=== PATIENT | male | born 1950 | race Caucasian/White ===

== ENCOUNTER 2018-02-16 15:07 | Inpatient (IN) ==
[2018-02-16] MEDS ORDERED: *HR* Dextrose 50 % in Water (Syg) 50 ML SYRINGE IVP PRN (17:29)
[2018-02-16] MEDS ORDERED: D5% in Water 1,000 ML IVC PRN (17:29)
[2018-02-16] MEDS ORDERED: Dextrose Gel 15 GM/37.5 ML TUBE PO PRN ×2 (17:29)
[2018-02-16] MEDS ORDERED: *HR* OxyCODONE Immed Rel 5 MG TABLET PO PRN ×2 (17:37)
[2018-02-16] MEDS: Famotidine 20 MG TABLET PO SCH (18:10)
--- NOTE | 2018-02-16 19:02 | Internal Med History&Physical ---
Date of Encounter: 02/16/18 Time of Encounter: 21:36 Assessment and Plan (1) Physical deconditioning Current visit: Yes Status: Acute he had a prolonged post op course and is here for rehab. PT/OT/RT and PMR consults (2) S/P CABG x 2 Current visit: Yes Status: Acute sternal precautions. here for rehab. he is on metoprolol, plavix, lasix, amiodarone. call in for record about why he is on the amiodarone for sure. ct surg wants f/u cxr 02/17 order entered (3) CAD (coronary artery disease) Current visit: Yes Status: Acute he is s/p stemi and cabg Qualifiers: Coronary Disease-Associated Artery/Lesion type: [place] artery [place] vs. transplanted heart: [place] heart Associated angina: without angina Qualified Code(s): I25.10 - Atherosclerotic heart disease of [place] coronary artery without angina pectoris (4) HTN (hypertension) Current visit: Yes Status: Acute he did have some trouble maintaining his pressure prior to yesterday. will continue with the current medication and watch his blood pressures Qualifiers: Hypertension type: essential hypertension Qualified Code(s): I10 - Essential (primary) hypertension (5) Mixed hyperlipidemia Current visit: Yes Status: Acute atorvastain (6) Hyperglycemia Current visit: Yes Status: Acute he was on ssi and accuchecks at the prior hospital, will continue this with med ssi (7) Thrombocytopenia Current visit: Yes Status: Acute his antibodies were negative per hematology consult felt not to be hit so ok for anticoag per heme after stable from gi bleed (8) GI bleed Current visit: Yes Status: Acute from duodenal ulcers will add prevacid to avoid plavix interaction Qualifiers: GI bleed type/associated pathology: duodenal ulcer Qualified Code(s): K26.4 - Chronic or unspecified duodenal ulcer with hemorrhage (9) Duodenal ulcer Current visit: Yes Status: Acute will add ppi. watch hemoglobin he had egd (10) Left carotid bruit Current visit: Yes Status: Acute will check dopplers (11) Jaundice Current visit: Yes Status: Acute get hepatic panel with am labs (12) DVT prophylaxis Current visit: Yes Status: Acute he has on marion hose and is on plavix. he had a gi bleed due to duodenal ulcer and thrombocytopenia so will hold off on other meds. (13) Afib Current visit: Yes Status: Acute he is on metoprolol and amiodarone. he gts plavix and asa but had a gi bleed and thrombocytopenia so is not a candidate for further anticoagulation Qualifiers: Atrial fibrillation type: paroxysmal Qualified Code(s): I48.0 - Paroxysmal atrial fibrillation Internal Medicine - H&P: HPI Chief complaint: here for rehab Admitted From: Direct Admit Plans for Post Hospital Care: Home History of present illness: Mr. Shine is a 67 year old male who has had a prolonged hospital course. he intially presented to [facility] with a STEMI. he was transfered and elvaluated. he was on anticoagulation and developed a GI bleed. He had an EGD and colonoscopy that showed duodenal ulcers and a colon polyp. After he was cleared from GI he had CABG x2 and a left atrial appendage clipping. He did develop post op thrombocytopenia and difficulty weaning off the vent. He had a hematology consult and they intially stopped anticoagulation but did not feel it was hit after the antbiodies were negative. he was cleared to resume from a heme standpoint if cleared from his gi bleed due to the ulcers. He had difficulty weaning off the vent and ended up on a medrol dose pack taper. he also had problems with hypotension postop. on 02/14 his sbp were 90 to 120. yesterday and today the records show bp in the normal range. He also had a concern for aspiration and saw ST at the outside hospital. he was cleared from their standpoint. he is on denture soft diet orders. he sugars were elevated at the last hospital and he was getting ssi. he was a smoker prior to being admitted. he has been very deconditioned since his surgery. on 02/14 he was still a 2 person max assist. today he was able to walk with nurse with standby assist. he also had to have frequent reminders will at the outside hospital prior to admission he was living at home and taking care of himself and driving. he will occ have pain in his incision with hiccups but otherwise pain controlled. he is not coughing having cp or sob. bowels are ok. no current complats looking forward to getting home Past Med Surg Social Fam HX - Past Medical History Medical history: atrial fibrillation, GERD, GI bleed (duodenal ulcers), hyperlipidemia, myocardial infarction, other (thrombocytopenia. felt not to be hit with the negative antibodies) Additional medical history: STEMI x2 2018 Psychiatric history: no psych history - Past Surgical History Surgical History: coronary bypass (CABG) (02/06/18 CABG x 2 with left atrial appendage clipping), other (02/04/18 colonoscopy, egd for GI bleed,colon polyp, duodenal ulcers) - Social History Smoking Status: Former smoker (was smoking prior to admission) Smokeless Tobacco Status: No Alcohol use: none Drug use: none - Family History Sister Living Status: Still Living Hx Family Cardiac Disorders: Yes (mi) Brother Living Status: Hx Family Cancer: Yes Father Living Status: Age at : 73 Hx Family Respiratory Disorders: Yes (copd) Mother Living Status: Hx Family Cardiac Disorders: Yes (cad) Internal Medicine - H&P: Meds Acetaminophen [Tylenol] 1,000 mg PO Q8HR PRN 02/16/18 [History] Amiodarone [Cordarone] 200 mg PO DAILY 02/16/18 [History] Aspirin [Ecotrin] 325 mg PO DAILY 02/16/18 [History] Atorvastatin Calcium [Lipitor] 20 mg PO DAILY 02/16/18 [History] Clopidogrel [Plavix] 75 mg PO DAILY 02/16/18 [History] Furosemide [Lasix] 40 mg PO DAILY 02/16/18 [History] Melatonin 3 mg Tablet 6 mg PO HS PRN 02/16/18 [History] MethylPREDNISolone [MethylPREDNISolone Dose Pack] 4 mg PO DAILY 02/16/18 [ History] Metoprolol [Lopressor] 25 mg PO BID 02/16/18 [History] OxyCODONE Immed Rel [Roxicodone 10 MG] 10 mg PO Q4HR PRN 02/16/18 [History] OxyCODONE Immed Rel [Roxicodone 5 MG] 5 each PO Q4HR PRN 02/16/18 [History] Polyethylene Glycol 3350 [MiraLAX] 17 gm PO DAILY 02/16/18 [History] Ranitidine HCl [Zantac 75] 150 mg PO BID 02/16/18 [History] Sennosides/Docusate Sodium [Colace 2-in-1 Tablet] 2 each PO DAILY 02/16/18 [ History] 3 Allergy/AdvReac Type Severity Reaction Status Date / Time No Known Allergies Allergy Verified 02/16/18 17:12 All Systems PM: A 10-system review of systems was performed and is negative for pertinent findings except as documented above in the HPI. - Constitutional Constitutional: fatigue, no chills, no fever(s), no lethargy, no weakness - EENT Eyes: no change in vision Nose, mouth and throat: no sore throat - Cardiovascular Cardiovascular ROS IM: no chest pain, no dyspnea, no edema, no lightheadedness, no palpitations - Respiratory Respiratory: no cough, no wheezing - Gastrointestinal Gastrointestinal: no constipation, no diarrhea, no hematochezia (since prior to colonoscopy), no loose stools, no melena, no nausea, no vomiting - Genitourinary Genitourinary ROS male: urinary frequency (after he has lasix), no hematuria, no urinary urgency - Musculoskeletal Musculoskeletal ROS IM: muscle weakness (generalized), no muscle cramps - Integumentary Integumentary IM: jaundice, no pruritus, no rash - Neurological Neurological ROS: no abnormal speech, no focal weakness - Psychiatric Psychiatric: no anxiety - Hematologic/Lymphatic Hematologic/Lymphatic: easy bruising - Constitutional Vitals: Temp Pulse Resp BP Pulse Ox 98.1 F 80 20 107/68 96 02/16/18 17:21 02/16/18 17:21 02/16/18 17:21 02/16/18 17:21 02/16/18 17:21 General appearance: Present: A&O X 3, no acute distress, answers questions appropriately - Head Head exam: Present: atraumatic, normocephalic - Neck Neck exam general surgery: Present: supple, trachea midline. Absent: lymphadenopathy - Expanded Neck Exam Neck exam: Present: carotid bruit (left) - Respiratory Respiratory exam: Present: CTAB. Absent: wheezes - Cardiovascular Cardiovascular exam: Present: RRR, +S1, +S2. Absent: systolic murmur - GI/Abdominal GI/Abdominal exam: Present: normal bowel sounds, soft, no peritoneal signs. Absent: distended, guarding, mass - Extremities Exam Extremities exam: Present: full ROM, normal capillary refill, warm. Absent: mottling, pedal edema (marion hose in place) - Expanded Upper Extremities Exam Upper Arm exam: Present: ecchymosis (right) - Expanded Lower Extremities Exam Lower Leg exam: Present: ecchymosis Gait: Present: not tested/not observed - Incison Incision: Present: clean and dry, intact (sternal incision, chest tubes with sutures c/d/i, right lower ext medial with serous d.c no erythema, lower leg intact) - VTE Documentation of Mechanical Device: Graduated compression elastic hosiery
[2018-02-16] MEDS: Insulin LISPRO 300 UNITS/3 ML VIAL SQ SCH (20:22)
[2018-02-16] MEDS: Melatonin 3 MG TABLET PO PRN (20:26)
[2018-02-16 21:09] LABS: Bilirubin,Urine Small (Negative); Blood,Urine Negative (Negative); Clarity,Urine Clear (Clear); Color,Urine Yellow (Yellow); Glucose,Urine (UA) Normal (Normal); Ketones,Urine Negative (Negative); Leukocyte Esterase,Urine Negative (Negative); Nitrite,Urine Negative (Negative); Protein,Urine Trace mg/dL (Neg-Trace); Urobilinogen,Urine >=8.0 mg/dL (Normal)
[2018-02-16] MEDS ORDERED: Ipratropium/Albuterol Neb 3 ML IH PRN (21:34)
[2018-02-17 05:41] LABS: Basophils % 0.1 %; Eosinophils # 0.3 K/mcL (0.0-0.6); Eosinophils % 2.4 %; Hematocrit 32.9 % (37.5-50.1); Hemoglobin 11.1 g/dL (12.9-16.9); Immature Granulocytes % 1.4 % (0-4); Lymphocytes # 1.3 K/mcL (0.6-4.6); Mean Corpuscular HGB Conc 33.7 g/dL (31.6-35.5); Mean Corpuscular Hemoglobin 32.5 pg (28.0-33.3); Mean Corpuscular Volume 96.2 fL (83.0-100.0); Mean Platelet Volume 13.7 fL (9.4-12.4); Monocytes # 0.7 K/mcL (0.0-1.3); Monocytes % 6.1 %; Neutrophils # 8.6 K/mcL (1.6-8.9); Platelet Count 130 K/mcL (140-400); Red Blood Count 3.42 M/mcL (4.19-5.50); Red Cell Distribution Width 20.2 % (11.5-14.5)
[2018-02-17 05:54] LABS: Albumin 2.6 g/dL (3.5-5.7); BUN/Creatinine Ratio 19 (6-26); Bilirubin,Direct 3.1 mg/dL (0.0-0.2); Bilirubin,Indirect 2.7 mg/dL (0.0-1.2); Bilirubin,Total 5.8 mg/dL (0.3-1.0); Blood Urea Nitrogen 20 mg/dL (8-23); Calcium 7.9 mg/dL (8.6-10.3); Carbon Dioxide 23 mEq/L (23-29); Chloride 100 mEq/L (98-107); Globulin 2.5 g/dL (2.4-3.5); Glucose 100 mg/dL (70-105); Osmolality,Calculated 269 (280-300); Potassium 3.7 mEq/L (3.5-5.1); Sodium 128 mEq/L (136-145); Total Protein 5.1 g/dL (6.4-8.9); eGFR For African Americans > 60 (> 60); eGFR For Non-African Americans > 60 (> 60)
--- NOTE | 2018-02-17 07:10 | Internal Med Progress Note ---
Date of Encounter: 02/17/18 Time of Encounter: 07:08 - Assessment and plan (1) Physical deconditioning Current Visit: Yes Status: Acute Assessment and plan: Patient is here status post [place], CABG and prolonged hospital course at [facility]. Admitted to swing bed for PT, OT, RT. He has no acute symptoms to preclude those therapies at the present time. He will be on chest sternal precautions (2) S/P CABG x 2 Current Visit: Yes Status: Acute Assessment and plan: Status post CABG. His chest wall is healing well. No signs of angina or congestive heart failure on examination. Chest x-ray has been ordered. We will advance his activity as tolerated. (3) Elevated liver function tests Current Visit: Yes Status: Acute Assessment and plan: He has elevated liver functions. Not sure of the etiology. I will need to review records from [facility]. He is having no GI symptoms, no obvious liver enlargement, no abdominal tenderness or masses. Further evaluation after I have previous records (4) HTN (hypertension) Current Visit: Yes Status: Acute Assessment and plan: History of hypertension and is controlled currently. Did have hypotension after his surgery. Seems be doing well at this point. Qualifiers: Hypertension type: essential hypertension Qualified Code(s): I10 - Essential (primary) hypertension (5) GI bleed Current Visit: Yes Status: Acute Assessment and plan: History of previous GI bleed/duodenal ulcer. He is on PPI and H2 kai. He has no GI symptoms. No stool changes. We are avoiding full anticoagulation because of this. Qualifiers: GI bleed type/associated pathology: duodenal ulcer Qualified Code(s): K26.4 - Chronic or unspecified duodenal ulcer with hemorrhage (6) Afib Current Visit: Yes Status: Acute Assessment and plan: History of atrial fibrillation but his heart rhythm is regular. I will get a baseline EKG. We will need to review his old records as well. Patient is on amiodarone and beta kai. Not a candidate currently for full anticoagulation because of recent significant GI bleed. Qualifiers: Atrial fibrillation type: paroxysmal Qualified Code(s): I48.0 - Paroxysmal atrial fibrillation (7) Hyperglycemia Current Visit: Yes Status: Acute Assessment and plan: History of hyperglycemia. Sugar this morning is 100. Continue to monitor. Will get baseline glycohemoglobin if not already done (8) Left carotid bruit Current Visit: Yes Status: Acute Assessment and plan: Patient has a left carotid bruit per Dr. Hall's exam. I did not evaluate today. Dopplers have been ordered. No lateralizing symptoms. (9) DVT prophylaxis Current Visit: Yes Status: Acute Assessment and plan: Patient is on NATY hose and Plavix. Due to previous duodenal ulcer and thrombocytopenia we are holding off other medications. - Subjective Interval history: Patient states that he is doing well. He would like to be up and out of bed without having assistance with the staff. We talked to him about the bed alarms. He denies any cardiac type chest pain. When he has a cough or hiccup his chest wall is appropriately tender. He denies any cough or dyspnea or sputum production. He denies any GI symptoms, no abdominal pain, no melena or hematochezia. Lower extremities are without edema. He has no calf tenderness. He does not have his dentures with him. He typically eats without the dentures because food tastes better that way. - Constitutional Vitals: Temp Pulse Resp BP Pulse Ox 98.6 F 80 16 135/75 97 02/17/18 04:00 02/17/18 04:00 02/17/18 04:00 02/17/18 04:00 02/17/18 04:00 General appearance: Present: A&O X 3, no acute distress, answers questions appropriately - Respiratory Respiratory exam: Present: CTAB. Absent: rales, rhonchi, wheezes - Cardiovascular Cardiovascular exam: Present: RRR, +S1, +S2 - GI/Abdominal GI/Abdominal exam: Present: soft. Absent: hepatomegaly, mass, tenderness - Extremities Exam Extremities exam: Absent: calf tenderness, pedal edema Additional comments: Stockings are in place. Bruising is noted in the right posterior calf area. He is thinking graft site incisions on the right lower leg show minimal drainage. No secondary infection. - Incison Comments: His chest incision is clean and dry and healing very well. His chest tube sites on his lower chest shows small amount of drainage from 1 and is partially opened the sutures have dehisced a bit on the right side. No signs of infection. No purulent drainage. Internal Medicine: Result - Labs CBC & Chem 7: 02/17/18 05:25 02/17/18 05:25 Labs: Short CBC 02/17/18 Range/Units 05:25 WBC 11.0 (4.3-11.1) K/mcL Hgb 11.1 L (12.9-16.9) g/dL Hct 32.9 L (37.5-50.1) % Plt Count 130 L (140-400) K/mcL Neutrophils # 8.6 (1.6-8.9) K/mcL BMP 02/17/18 05:25 Sodium 128 L Potassium 3.7 Chloride 100 Carbon Dioxide 23 BUN 20 Creatinine 1.03 Glucose 100 Calcium 7.9 L Liver Function 02/17/18 Range/Units 05:25 Total Bilirubin 5.8 H (0.3-1.0) mg/dL Direct Bilirubin 3.1 H (0.0-0.2) mg/dL AST 89 H (13-39) Units/L ALT 124 H (7-52) Units/L Alkaline Phosphatase 242 H (34-104) Units/L Albumin 2.6 L (3.5-5.7) g/dL Urine 02/16/18 Range/Units 20:48 Urine Color Yellow (Yellow) Urine Clarity Clear (Clear) Urine pH 7.0 (5.0-8.0) pH Units Ur Specific [place] 1.020 (1.010-1.025) Urine Protein Trace (Neg-Trace) mg/dL Urine Glucose (UA) Normal (Normal) mg/dL Labs have been reviewed. His hemoglobin is reassuring at 11. He has hyponatremia of 128. His elevated bilirubin and liver functions. I need to evaluate his baseline labs from [facility]. - VTE Documentation of Mechanical Device: Graduated compression elastic hosiery Consult Discharge Plan - Plan Referrals: Bri Ramos, BUSINESS SYSTEMS LEAD [Primary Care Provider] -
[2018-02-17] MEDS: Insulin LISPRO 300 UNITS/3 ML VIAL SQ SCH ×4 (07:39→19:39)
[2018-02-17] MEDS ORDERED: methylPREDNISolone 4 MG TABLET PO ONE (08:00)
[2018-02-17] MEDS: Aspirin Enteric Coated 325 MG Tablet PO SCH (08:09)
[2018-02-17] MEDS: Famotidine 20 MG TABLET PO SCH ×2 (08:09→16:47)
[2018-02-17] MEDS: *HR* Amiodarone 200 MG TABLET PO SCH (08:10)
[2018-02-17] MEDS: Sennosides/Docusate Sodium TABLET PO SCH (08:11)
[2018-02-17] MEDS: Furosemide 40 MG TABLET PO SCH (08:39)
[2018-02-17] MEDS: methylPREDNISolone 4 MG TABLET PO SCH ×2 (11:55→16:47)
--- NOTE | 2018-02-17 17:47 | Electrocardiograph Report ---
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
[2018-02-17] MEDS: Melatonin 3 MG TABLET PO PRN (19:40)
[2018-02-17] MEDS ORDERED: methylPREDNISolone 4 MG TABLET PO SCH (21:00)
[2018-02-18 06:49] LABS: Basophils % 0.1 %; Eosinophils % 0.1 %; Hematocrit 38.6 % (37.5-50.1); Hemoglobin 12.7 g/dL (12.9-16.9); Lymphocytes # 1.6 K/mcL (0.6-4.6); Lymphocytes % 11.4 %; Mean Corpuscular HGB Conc 32.9 g/dL (31.6-35.5); Mean Corpuscular Hemoglobin 32.6 pg (28.0-33.3); Mean Platelet Volume 13.2 fL (9.4-12.4); Monocytes # 0.8 K/mcL (0.0-1.3); Monocytes % 5.8 %; Platelet Count 227 K/mcL (140-400); Red Cell Distribution Width 20.6 % (11.5-14.5); Segmented Neutrophils % 81.6 %
[2018-02-18 07:01] LABS: Alanine Aminotransferase 137 Units/L (7-52); Albumin 3.2 g/dL (3.5-5.7); Alkaline Phosphatase 246 Units/L (34-104); Aspartate Amino Transferase 87 Units/L (13-39); BUN/Creatinine Ratio 23 (6-26); Bilirubin,Direct 2.4 mg/dL (0.0-0.2); Bilirubin,Indirect 2.4 mg/dL (0.0-1.2); Bilirubin,Total 4.8 mg/dL (0.3-1.0); Blood Urea Nitrogen 22 mg/dL (8-23); Calcium 8.7 mg/dL (8.6-10.3); Carbon Dioxide 21 mEq/L (23-29); Chloride 101 mEq/L (98-107); Globulin 3.1 g/dL (2.4-3.5); Glucose 122 mg/dL (70-105); Osmolality,Calculated 275 (280-300); Potassium 4.4 mEq/L (3.5-5.1); Sodium 130 mEq/L (136-145); Total Protein 6.3 g/dL (6.4-8.9); eGFR For African Americans > 60 (> 60); eGFR For Non-African Americans > 60 (> 60)
[2018-02-18 07:04] LABS: Neutrophils # 11.7 K/mcL (1.6-8.9)
[2018-02-18] MEDS: Famotidine 20 MG TABLET PO SCH ×2 (08:11→16:27)
[2018-02-18] MEDS: methylPREDNISolone 4 MG TABLET PO SCH ×3 (08:12→16:27)
[2018-02-18] MEDS: Aspirin Enteric Coated 325 MG Tablet PO SCH (08:12)
[2018-02-18] MEDS: *HR* Amiodarone 200 MG TABLET PO SCH (08:12)
[2018-02-18] MEDS: Sennosides/Docusate Sodium TABLET PO SCH (08:12)
[2018-02-18] MEDS: Furosemide 40 MG TABLET PO SCH (08:12)
[2018-02-18] MEDS: Insulin LISPRO 300 UNITS/3 ML VIAL SQ SCH ×3 (08:20→17:29)
[2018-02-18 15:41] LABS: Estimated Average Glucose 88 mg/dl; Hemoglobin A1C 4.7 %
--- NOTE | 2018-02-18 18:54 | Internal Med Progress Note ---
Date of Encounter: 02/18/18 Time of Encounter: 18:52 - Assessment and plan (1) Physical deconditioning Current Visit: Yes Status: Acute Assessment and plan: He is doing very well with his therapies. No cardiac or dyspnea symptoms. His vitals are stable. Keep advancing as tolerated. (2) S/P CABG x 2 Current Visit: Yes Status: Acute Assessment and plan: No cardiac type chest pain. No signs of CHF. He feels great. (3) Elevated liver function tests Current Visit: Yes Status: Acute Assessment and plan: Elevated liver functions. I reviewed all the records from [facility] and there is no mention of elevated liver functions by the physicians. I do see lab results with transaminases in the 1000 range. Obviously this is improved. I will see if any other records are available before we delve into a workup. (4) HTN (hypertension) Current Visit: Yes Status: Acute Assessment and plan: Blood pressure under good control. Qualifiers: Hypertension type: essential hypertension Qualified Code(s): I10 - Essential (primary) hypertension (5) GI bleed Current Visit: Yes Status: Acute Assessment and plan: Previous GI bleed. No melena or hematochezia. Continue with PPI. Abdomen is soft and nontender. Hemoglobin 12.7. Qualifiers: GI bleed type/associated pathology: duodenal ulcer Qualified Code(s): K26.4 - Chronic or unspecified duodenal ulcer with hemorrhage (6) Afib Current Visit: Yes Status: Acute Assessment and plan: His heart is regular rate and rhythm Qualifiers: Atrial fibrillation type: paroxysmal Qualified Code(s): I48.0 - Paroxysmal atrial fibrillation (7) Hyperglycemia Current Visit: Yes Status: Acute Assessment and plan: Minimal hyperglycemia, likely from his steroid use. Glycohemoglobin is 4.7%. He has not been needing sliding scale insulin. I have discontinued his insulin and his Accu-Cheks and his hypoglycemic regimens. (8) Left carotid bruit Current Visit: Yes Status: Acute Assessment and plan: Carotid Doppler done yesterday shows 80-99% stenosis in the left carotid artery. Right shows minimal plaque. He has no lateralizing signs or symptoms. Further workup and intervention when he has recuperated. (9) DVT prophylaxis Current Visit: Yes Status: Acute - Subjective Interval history: Patient states that he feels well. He is doing well with his therapies. He denies any cardiac type chest pain. He has chest wall pain if he coughs or hiccups. He denies any abdominal pain. Denies any nausea or vomiting. No melena or hematochezia. No calf pain or tenderness. No dyspnea. No withdrawal symptoms from nicotine cessation. - Constitutional Vitals: Temp Pulse Resp BP Pulse Ox 97.3 F L 92 16 106/61 98 02/18/18 07:02 02/18/18 07:02 02/18/18 07:02 02/18/18 07:02 02/18/18 07:02 General appearance: Present: A&O X 3, no acute distress, answers questions appropriately - Respiratory Respiratory exam: Present: CTAB - Cardiovascular Cardiovascular exam: Present: RRR, +S1, +S2, systolic murmur (1 to 2/6 systolic murmur. I believe I hear an intermittent rub.) - GI/Abdominal GI/Abdominal exam: Present: soft. Absent: hepatomegaly, tenderness - Extremities Exam Extremities exam: Absent: calf tenderness, pedal edema Additional comments: Stockings are in place. Internal Medicine: Result - Labs CBC & Chem 7: 02/18/18 06:25 02/18/18 06:25 Labs: Short CBC 02/18/18 Range/Units 06:25 WBC 14.3 H (4.3-11.1) K/mcL Hgb 12.7 L D (12.9-16.9) g/dL Hct 38.6 (37.5-50.1) % Plt Count 227 D (140-400) K/mcL Neutrophils # 11.7 H (1.6-8.9) K/mcL BMP 02/18/18 06:25 Sodium 130 L Potassium 4.4 Chloride 101 Carbon Dioxide 21 L BUN 22 Creatinine 0.95 Glucose 122 H Calcium 8.7 Liver Function 02/18/18 Range/Units 06:25 Total Bilirubin 4.8 H (0.3-1.0) mg/dL Direct Bilirubin 2.4 H (0.0-0.2) mg/dL AST 87 H (13-39) Units/L ALT 137 H (7-52) Units/L Alkaline Phosphatase 246 H (34-104) Units/L Albumin 3.2 L (3.5-5.7) g/dL abs have been reviewed. Bilirubin is a bit better. (The old records were reviewed and the only thing I can find in liver functions is transaminases in the thousand range) - VTE Documentation of Mechanical Device: Graduated compression elastic hosiery Consult Discharge Plan - Plan Referrals: Bri Ramos, FINANCIAL MARKET DEALER [Primary Care Provider] -
[2018-02-19] MEDS: Furosemide 40 MG TABLET PO SCH (08:19)
[2018-02-19] MEDS: Aspirin Enteric Coated 325 MG Tablet PO SCH (08:19)
[2018-02-19] MEDS: predniSONE 20 MG TABLET PO SCH (08:19)
[2018-02-19] MEDS: Famotidine 20 MG TABLET PO SCH ×2 (08:19→16:20)
[2018-02-19] MEDS: Sennosides/Docusate Sodium TABLET PO SCH (08:19)
[2018-02-19] MEDS: *HR* Amiodarone 200 MG TABLET PO SCH (08:19)
--- NOTE | 2018-02-19 14:51 | Internal Med Progress Note ---
Date of Encounter: 02/19/18 Time of Encounter: 14:45 - Assessment and plan (1) Physical deconditioning Current Visit: Yes Status: Acute Assessment and plan: Patient is doing well with his therapies. He is not having any cardiac or respiratory symptoms. He will resume therapies on Tuesday. (2) S/P CABG x 2 Current Visit: Yes Status: Acute Assessment and plan: No angina or CHF noted. Benign sounding biphasic rub is heard. Vitals are stable. (3) Elevated liver function tests Current Visit: Yes Status: Acute Assessment and plan: History of elevated liver functions, asymptomatic. His transaminases and total bilirubin are much improved from when tested at [facility]. I cannot find etiology or documentation otherwise in the old records. Follow-up liver function scheduled for tomorrow. Workup depending on those results. (4) HTN (hypertension) Current Visit: Yes Status: Acute Assessment and plan: Blood pressure under good control. Continue the same medication. Qualifiers: Hypertension type: essential hypertension Qualified Code(s): I10 - Essential (primary) hypertension (5) GI bleed Current Visit: Yes Status: Acute Assessment and plan: History of previous GI bleed. Follow-up hemoglobin ordered for tomorrow. No melena or hematochezia. Vitals are stable. Abdomen examination normal Qualifiers: GI bleed type/associated pathology: duodenal ulcer Qualified Code(s): K26.4 - Chronic or unspecified duodenal ulcer with hemorrhage (6) Afib Current Visit: Yes Status: Resolved Assessment and plan: History of atrial fibrillation mentioned in his previous record. His heart rate is regular. EKG shows normal sinus rhythm. Continue his current medications. No angina or CHF noted. Qualifiers: Atrial fibrillation type: paroxysmal Qualified Code(s): I48.0 - Paroxysmal atrial fibrillation (7) Hyperglycemia Current Visit: Yes Status: Resolved Assessment and plan: Minimal hyperglycemia. Glycohemoglobin is 4.7%. Hyperglycemia likely from the steroids. He has not been requiring sliding scale insulin so therefore I discontinued the Accu-Cheks and coverage. (8) Left carotid bruit Current Visit: Yes Status: Acute Assessment and plan: Has left carotid bruit, asymptomatic. 80-99% stenosis on Doppler. Further workup will be planned. Continue current medication. (9) DVT prophylaxis Current Visit: Yes Status: Acute - Subjective Interval history: Patient states that he is doing well. He denies any cardiac type chest pain. Incisional chest pain only if he coughs, which is seldom. He is ambulatory without any significant symptoms. He said he was nauseated after taking 17 pills at the same time this morning at breakfast. No problems with bowel or bladder elimination. No pain or swelling in his lower extremities. He is having only minimal drainage from the chest tube site. - Constitutional Vitals: Temp Pulse Resp BP Pulse Ox 98.3 F 83 16 107/66 97 02/19/18 07:45 02/19/18 07:45 02/18/18 19:35 02/19/18 07:45 02/19/18 07:45 General appearance: Present: A&O X 3, no acute distress, answers questions appropriately - Respiratory Respiratory exam: Present: decreased breath sounds, CTAB - Cardiovascular Cardiovascular exam: Present: RRR, rubs (Biphasic rub is heard in the left sternal border), +S1, +S2. Absent: systolic murmur - GI/Abdominal GI/Abdominal exam: Present: soft. Absent: hepatomegaly, tenderness - Extremities Exam Extremities exam: Absent: calf tenderness, pedal edema, tenderness - Incison Comments: #1. Chest incision looks great. #2. Chest tube site on the right side shows very minimal drainage. There is no fluctuance or tenderness. Sutures intact on the left one. #3 Incision sites for the vein graft site healing appropriately. Appropriate bruising noted. Internal Medicine: Result - Labs CBC & Chem 7: 02/18/18 06:25 02/18/18 06:25 Labs: Labs were reviewed yesterday. None were drawn today. Labs ordered for tomorrow. Labs reviewed from [facility] and transaminases were in the 1000 to 2000 range. Bilirubin was 6.5. - VTE Documentation of Mechanical Device: Graduated compression elastic hosiery Consult Discharge Plan - Plan Referrals: Bri Ramos, DIRECTOR INDEPENDENT [Primary Care Provider] -
[2018-02-19] MEDS ORDERED: methylPREDNISolone 4 MG TABLET PO SCH (21:00)
[2018-02-20 05:33] LABS: Basophils % 0.1 %; Eosinophils # 0.1 K/mcL (0.0-0.6); Eosinophils % 0.5 %; Hematocrit 34.7 % (37.5-50.1); Hemoglobin 11.3 g/dL (12.9-16.9); Immature Granulocytes % 0.6 % (0-4); Lymphocytes % 22.7 %; Mean Corpuscular HGB Conc 32.6 g/dL (31.6-35.5); Mean Corpuscular Hemoglobin 32.6 pg (28.0-33.3); Mean Platelet Volume 12.2 fL (9.4-12.4); Monocytes # 1.2 K/mcL (0.0-1.3); Monocytes % 8.9 %; Neutrophils # 8.9 K/mcL (1.6-8.9); Platelet Count 263 K/mcL (140-400); Red Blood Count 3.47 M/mcL (4.19-5.50); Red Cell Distribution Width 19.9 % (11.5-14.5); Segmented Neutrophils % 67.2 %
[2018-02-20 05:51] LABS: Alanine Aminotransferase 129 Units/L (7-52); Albumin 2.9 g/dL (3.5-5.7); Albumin/Globulin Ratio 1.1 (1.1-2.2); Alkaline Phosphatase 178 Units/L (34-104); Aspartate Amino Transferase 76 Units/L (13-39); BUN/Creatinine Ratio 27 (6-26); Bilirubin,Direct 1.5 mg/dL (0.0-0.2); Bilirubin,Indirect 1.3 mg/dL (0.0-1.2); Bilirubin,Total 2.8 mg/dL (0.3-1.0); Blood Urea Nitrogen 29 mg/dL (8-23); Calcium 8.7 mg/dL (8.6-10.3); Carbon Dioxide 27 mEq/L (23-29); Chloride 103 mEq/L (98-107); Globulin 2.7 g/dL (2.4-3.5); Glucose 106 mg/dL (70-105); Osmolality,Calculated 292 (280-300); Potassium 4.3 mEq/L (3.5-5.1); Sodium 138 mEq/L (136-145); Total Protein 5.6 g/dL (6.4-8.9); eGFR For African Americans > 60 (> 60); eGFR For Non-African Americans > 60 (> 60)
[2018-02-20] MEDS: Sennosides/Docusate Sodium TABLET PO SCH (08:22)
[2018-02-20] MEDS: predniSONE 20 MG TABLET PO SCH (08:22)
[2018-02-20] MEDS: Famotidine 20 MG TABLET PO SCH ×2 (08:22→17:55)
[2018-02-20] MEDS: *HR* Amiodarone 200 MG TABLET PO SCH (08:22)
[2018-02-20] MEDS: Aspirin Enteric Coated 325 MG Tablet PO SCH (08:22)
[2018-02-20] MEDS: Furosemide 40 MG TABLET PO SCH ×2 (08:42→17:55)
--- NOTE | 2018-02-20 11:16 | Internal Med Progress Note ---
Date of Encounter: 02/20/18 Time of Encounter: 12:40 - Assessment and plan (1) Physical deconditioning Current Visit: Yes Status: Acute Assessment and plan: here for pt/ot progressing well d/c on 02/22 with home health and home pt (2) S/P CABG x 2 Current Visit: Yes Status: Acute Assessment and plan: stable no current cardiac symptoms (3) CAD (coronary artery disease) Current Visit: Yes Status: Acute Assessment and plan: no cp, no cardiac symptoms Qualifiers: Coronary Disease-Associated Artery/Lesion type: [place] artery [place] vs. transplanted heart: [place] heart Associated angina: without angina Qualified Code(s): I25.10 - Atherosclerotic heart disease of [place] coronary artery without angina pectoris (4) HTN (hypertension) Current Visit: Yes Status: Acute Assessment and plan: stable on current medication, not getting too low Qualifiers: Hypertension type: essential hypertension Qualified Code(s): I10 - Essential (primary) hypertension (5) Mixed hyperlipidemia Current Visit: Yes Status: Acute Assessment and plan: on statin (6) Hyperglycemia Current Visit: Yes Status: Resolved (7) Thrombocytopenia Current Visit: Yes Status: Acute Assessment and plan: stable will continue to follow possibly due to liver abnormality (8) GI bleed Current Visit: Yes Status: Acute Assessment and plan: hemoglobin stable on ppi Qualifiers: GI bleed type/associated pathology: duodenal ulcer Qualified Code(s): K26.4 - Chronic or unspecified duodenal ulcer with hemorrhage (9) Duodenal ulcer Current Visit: Yes Status: Acute Assessment and plan: on ppi hb stable (10) Left carotid bruit Current Visit: Yes Status: Acute (11) Jaundice Current Visit: Yes Status: Acute Assessment and plan: improving will check us of liver but they are not here until tomorrow. will arrange out pt gi referral (12) DVT prophylaxis Current Visit: Yes Status: Acute Assessment and plan: on marion and plavix and ambulation given hx of gi bleed (13) Afib Current Visit: Yes Status: Resolved Assessment and plan: on plavix, asa and betablocker and amiodarone. will cont until follow up with cardio, no candidate for other anticoagulation due to recent gi bleed Qualifiers: Atrial fibrillation type: paroxysmal Qualified Code(s): I48.0 - Paroxysmal atrial fibrillation (14) UTI (urinary tract infection) Current Visit: Yes Status: Acute Assessment and plan: added levaquin per sensitivities Qualifiers: Urinary tract infection type: acute cystitis Hematuria presence: with hematuria Qualified Code(s): N30.01 - Acute cystitis with hematuria - Subjective Interval history: feeling good today. only pain with cough. no sob, no n/v, no dizzy, no urine freq no dysuria. bowels ok. progressing with therapy and d/c set for wed. he is looking forward to it, urine cx positive. - Constitutional Vitals: Temp Pulse Resp BP Pulse Ox 98.4 F 81 18 109/69 96 02/20/18 07:29 02/20/18 07:29 02/20/18 07:29 02/20/18 07:29 02/20/18 07:29 General appearance: Present: A&O X 3, no acute distress (less jaundice), answers questions appropriately - Head Head exam: Present: atraumatic, normocephalic - Neck Neck exam general surgery: Present: supple. Absent: lymphadenopathy - Expanded Neck Exam Neck exam: Present: carotid bruit (left) - Respiratory Respiratory exam: Present: CTAB - Cardiovascular Cardiovascular exam: Present: RRR, +S1, +S2. Absent: systolic murmur - GI/Abdominal GI/Abdominal exam: Present: normal bowel sounds, soft, no peritoneal signs. Absent: distended, guarding, mass, tenderness - Extremities Exam Extremities exam: Absent: cyanotic, pedal edema (marion hose inplace) - Incison Incision: Present: clean and dry, intact. Absent: erythema (of sternal incisions and left leg x 2) - Skin Skin exam: Present: warm. Absent: rash Internal Medicine: Result - Labs CBC & Chem 7: 02/20/18 05:20 02/20/18 05:20 Labs: Short CBC 02/20/18 Range/Units 05:20 WBC 13.2 H (4.3-11.1) K/mcL Hgb 11.3 L (12.9-16.9) g/dL Hct 34.7 L (37.5-50.1) % Plt Count 263 (140-400) K/mcL Neutrophils # 8.9 (1.6-8.9) K/mcL BMP 02/20/18 05:20 Sodium 138 Potassium 4.3 Chloride 103 Carbon Dioxide 27 BUN 29 H Creatinine 1.08 Glucose 106 H Calcium 8.7 Liver Function 02/20/18 Range/Units 05:20 Total Bilirubin 2.8 H (0.3-1.0) mg/dL Direct Bilirubin 1.5 H (0.0-0.2) mg/dL AST 76 H (13-39) Units/L ALT 129 H (7-52) Units/L Alkaline Phosphatase 178 H (34-104) Units/L Albumin 2.9 L (3.5-5.7) g/dL - VTE Documentation of Mechanical Device: Graduated compression elastic hosiery Consult Discharge Plan - Plan Referrals: Bri Ramos CNP [Primary Care Provider] - Dennis Verduzco MD [Partnered Physician] - 02/27/18 11:30 am (At [place] location, arrive 15min early)
[2018-02-20] MEDS: levoFLOXacin 500 MG TABLET PO SCH (11:54)
[2018-02-21 05:40] LABS: Basophils % 0.1 %; Eosinophils % 0.1 %; Hematocrit 35.8 % (37.5-50.1); Hemoglobin 11.7 g/dL (12.9-16.9); Immature Granulocytes % 0.7 % (0-4); Lymphocytes # 2.8 K/mcL (0.6-4.6); Lymphocytes % 20.6 %; Mean Corpuscular HGB Conc 32.7 g/dL (31.6-35.5); Mean Corpuscular Hemoglobin 32.3 pg (28.0-33.3); Mean Corpuscular Volume 98.9 fL (83.0-100.0); Mean Platelet Volume 12.3 fL (9.4-12.4); Monocytes # 1.2 K/mcL (0.0-1.3); Monocytes % 8.7 %; Neutrophils # 9.5 K/mcL (1.6-8.9); Platelet Count 303 K/mcL (140-400); Red Blood Count 3.62 M/mcL (4.19-5.50); Red Cell Distribution Width 19.4 % (11.5-14.5); Segmented Neutrophils % 69.8 %
[2018-02-21 05:55] LABS: Albumin 3.2 g/dL (3.5-5.7); Albumin/Globulin Ratio 1.1 (1.1-2.2); Bilirubin,Direct 1.7 mg/dL (0.0-0.2); Bilirubin,Indirect 1.8 mg/dL (0.0-1.2); Bilirubin,Total 3.5 mg/dL (0.3-1.0); Globulin 2.8 g/dL (2.4-3.5)
[2018-02-21 06:09] LABS: Thyroid Stimulating Hormone 2.27 mcIU/mL (0.340-5.600)
[2018-02-21] MEDS ORDERED: methylPREDNISolone 4 MG TABLET PO SCH (08:00)
[2018-02-21] MEDS: predniSONE 20 MG TABLET PO SCH (08:54)
[2018-02-21] MEDS: Furosemide 40 MG TABLET PO SCH (08:55)
[2018-02-21] MEDS: *HR* Amiodarone 200 MG TABLET PO SCH (08:55)
[2018-02-21] MEDS: Aspirin Enteric Coated 325 MG Tablet PO SCH (08:55)
[2018-02-21] MEDS: Famotidine 20 MG TABLET PO SCH ×2 (08:55→17:14)
[2018-02-21] MEDS: levoFLOXacin 500 MG TABLET PO SCH (08:55)
[2018-02-21] MEDS: Sennosides/Docusate Sodium TABLET PO SCH (08:56)
[2018-02-21 08:57] LABS: Hepatitis B Surface Antigen Nonreactive (Nonreactive)
--- NOTE | 2018-02-21 10:52 | Internal Med Progress Note ---
Date of Encounter: 02/21/18 Time of Encounter: 10:52 - Assessment and plan (1) Physical deconditioning Current Visit: Yes Status: Acute Assessment and plan: here for pt/ot progressing well d/c on 02/22 with home health and home pt (2) S/P CABG x 2 Current Visit: Yes Status: Acute Assessment and plan: stable no current cardiac symptoms (3) CAD (coronary artery disease) Current Visit: Yes Status: Acute Assessment and plan: no cp, no cardiac symptoms Qualifiers: Coronary Disease-Associated Artery/Lesion type: [place] artery [place] vs. transplanted heart: [place] heart Associated angina: without angina Qualified Code(s): I25.10 - Atherosclerotic heart disease of [place] coronary artery without angina pectoris (4) HTN (hypertension) Current Visit: Yes Status: Acute Assessment and plan: stable on current medication, not getting too low Qualifiers: Hypertension type: essential hypertension Qualified Code(s): I10 - Essential (primary) hypertension (5) Mixed hyperlipidemia Current Visit: Yes Status: Acute Assessment and plan: on statin (6) Hyperglycemia Current Visit: Yes Status: Resolved Assessment and plan: off ssi now, sugars in range (7) Thrombocytopenia Current Visit: Yes Status: Acute Assessment and plan: stable will continue to follow possibly due to liver abnormality (8) GI bleed Current Visit: Yes Status: Acute Assessment and plan: hemoglobin stable on ppi Qualifiers: GI bleed type/associated pathology: duodenal ulcer Qualified Code(s): K26.4 - Chronic or unspecified duodenal ulcer with hemorrhage (9) Duodenal ulcer Current Visit: Yes Status: Acute Assessment and plan: on ppi hb stable (10) Left carotid bruit Current Visit: Yes Status: Acute Assessment and plan: has appt with karol (11) Jaundice Current Visit: Yes Status: Acute Assessment and plan: improving will check us of liver but they are not here until tomorrow. has out pt gi referral (12) DVT prophylaxis Current Visit: Yes Status: Acute Assessment and plan: on marion and plavix and ambulation given hx of gi bleed (13) Afib Current Visit: Yes Status: Resolved Assessment and plan: on plavix, asa and betablocker and amiodarone. will cont until follow up with cardio, no candidate for other anticoagulation due to recent gi bleed, has f/u with cardio after d/c Qualifiers: Atrial fibrillation type: paroxysmal Qualified Code(s): I48.0 - Paroxysmal atrial fibrillation (14) UTI (urinary tract infection) Current Visit: Yes Status: Acute Assessment and plan: added levaquin per sensitivities will send home on levaquin Qualifiers: Urinary tract infection type: acute cystitis Hematuria presence: with hematuria Qualified Code(s): N30.01 - Acute cystitis with hematuria - Subjective Interval history: feeling good today. only pain with cough. no sob, no n/v, no dizzy, no urine freq no dysuria. bowels ok. progressing with therapy and d/c set for wed. he is looking forward to it, urine cx positive. he is not having urine symptoms - Constitutional Vitals: Temp Pulse Resp BP Pulse Ox 97.7 F 84 16 119/68 95 02/21/18 07:17 02/21/18 07:17 02/21/18 07:17 02/21/18 07:17 02/21/18 07:17 General appearance: Present: A&O X 3, no acute distress (less jaundice), answers questions appropriately - Head Head exam: Present: atraumatic, normocephalic - Neck Neck exam general surgery: Present: supple, trachea midline. Absent: lymphadenopathy, tenderness - Expanded Neck Exam Neck exam: Present: carotid bruit (left) - Respiratory Respiratory exam: Present: CTAB - Cardiovascular Cardiovascular exam: Present: RRR, +S1, +S2. Absent: systolic murmur - GI/Abdominal GI/Abdominal exam: Present: normal bowel sounds, soft, no peritoneal signs. Absent: distended, guarding, mass - Extremities Exam Extremities exam: Present: warm. Absent: mottling, pedal edema - Incison Incision: Present: clean and dry, intact (sternal incisions and ) - Skin Skin exam: Present: dry, warm. Absent: rash Internal Medicine: Result - Labs CBC & Chem 7: 02/21/18 05:25 02/20/18 05:20 Labs: Short CBC 02/21/18 Range/Units 05:25 WBC 13.6 H (4.3-11.1) K/mcL Hgb 11.7 L (12.9-16.9) g/dL Hct 35.8 L (37.5-50.1) % Plt Count 303 (140-400) K/mcL Neutrophils # 9.5 H (1.6-8.9) K/mcL Liver Function 02/21/18 Range/Units 05:25 Total Bilirubin 3.5 H (0.3-1.0) mg/dL Direct Bilirubin 1.7 H (0.0-0.2) mg/dL AST 71 H (13-39) Units/L ALT 136 H (7-52) Units/L Alkaline Phosphatase 184 H (34-104) Units/L Albumin 3.2 L (3.5-5.7) g/dL - Impressions Impressions Liver Ultrasound 02/21/18 11:12 IMPRESSION: Diffuse fatty infiltration of the liver. D/ / 02/21/2018 10:17:18 Vish White MD / Gauri Clark Interpreting Provider: Vish White MD - VTE Documentation of Mechanical Device: Graduated compression elastic hosiery Consult Discharge Plan - Plan Referrals: Dr Bailey [Other] - 03/08/18 9:45 am Tevin Clayton MD [Partnered Physician] - 03/14/18 4:20 pm (follow up appoint with gastro) Chela Magdaleno MD [Partnered Physician] - 03/03/18 11:00 am Bri Ramos CNP [Primary Care Provider] - Dennis Verduzco MD [Partnered Physician] - 02/27/18 11:30 am (At [place] location, arrive 15min early) Prescriptions: Amiodarone [Cordarone] 200 mg PO DAILY #30 tablet Atorvastatin Calcium [Lipitor] 20 mg PO DAILY #30 tablet Clopidogrel [Plavix] 75 mg PO DAILY 30 Days #30 tablet Furosemide [Lasix] 40 mg PO DAILY #30 tablet levoFLOXacin [Levaquin] 500 mg PO DAILY #4 tablet Metoprolol [Lopressor] 25 mg PO BID #60 tablet Omeprazole [PriLOSEC] 20 mg PO BIDAC #60 capsule. predniSONE [PredniSONE] 20 mg PO DAILY #9 tablet
--- NOTE | 2018-02-21 16:54 | Discharge Summary ---
- NOTES TO OUTPATIENT PROVIDER Notes to Outpatient Provider: will need GI rf and follow up after, also Dax boyd for the carotid stenosis Orders not resulted at time of discharge: Pending orders 02/21/18 05:25 KRZYSZTOF IgG SELINA rflx IFA AM 0400 Hepatitis Prof.(Routine A,B,C) AM 0400 02/22/18 04:00 Basic Metabolic Panel AM 0400 Complete Blood Count [HEME] AM 0400 Hepatic Panel AM 0400 Date of Encounter: 02/23/18 Time of Encounter: 08:20 - Discharge Diagnosis (1) Physical deconditioning Priority: Primary Status: Acute Comments: He was here for deconditioning after he underwent CABG for an acute mi. He had PT OT consult to progress to medicine goals he did well he was safe from a physical standpoint he does live alone his sister lives next door he was instructed not to drive until cleared by the cardiothoracic surgeon. He was sent home with a walker he declined home health he declined home physical therapy. (2) S/P CABG x 2 Priority: Secondary Status: Acute Comments: He was doing stable from a cardiac standpoint he did have any further cardia symptoms he remains on a beta kai Plavix aspirin. (3) CAD (coronary artery disease) Priority: Secondary Status: Acute Comments: Not had any further cardiac symptoms since he initially presented with acute HI. He has follow-up with cardiology as an outpatient. Qualifiers: Coronary Disease-Associated Artery/Lesion type: [place] artery [place] vs. transplanted heart: [place] heart Associated angina: without angina Qualified Code(s): I25.10 - Atherosclerotic heart disease of [place] coronary artery without angina pectoris (4) HTN (hypertension) Priority: Secondary Status: Acute Comments: She remained stable on his new doses of medication metoprolol after he was started on Lasix after he was discharged from the hospital. He did have some hypotension at the outside hospital medicines resolved and his blood pressures have remained in the normal range. Qualifiers: Hypertension type: essential hypertension Qualified Code(s): I10 - Essential (primary) hypertension (5) Mixed hyperlipidemia Priority: Secondary Status: Acute Comments: His home dose of Lipitor was increased after his acute HI. Prescription was sent to the pharmacy (6) Hyperglycemia Priority: Secondary Status: Resolved Comments: He had some elevated sugars his elevated A1c was within the normal range he was on steroid taper after being discharged from [facility] after that was lowered he was in the normal range initially had Accu-Cheks those were DC'd because they stayed in the normal range did not require any sliding scale insulin while he was here (7) Thrombocytopenia Priority: Secondary Status: Acute Comments: He saw all hematology at the outside hospital initially felt was related to head stated testing was not related to headaches could very well be due to his liver disease with the elevated bilirubin. He has an appointment to follow-up with gastroenterology on the liver he does not currently have any further follow -up scheduled with hematology will repeat his CBC next week as an outpatient and go from there. He has a lot of appointments at this time since he saw hematology as an inpatient I did not set up an outpatient follow-up (8) GI bleed Priority: Secondary Status: Acute Comments: He had an EGD and colonoscopy at the outside hospital showed duodenal ulcers that also showed a colon polyp PPI was added as he did not have any further symptoms his hemoglobin remained stable Qualifiers: GI bleed type/associated pathology: duodenal ulcer Qualified Code(s): K26.4 - Chronic or unspecified duodenal ulcer with hemorrhage (9) Duodenal ulcer Priority: Secondary Status: Acute Comments: No further symptoms hemoglobin remained stable he did not have any stomach pain he was started on a PPI (10) Left carotid bruit Priority: Secondary Status: Acute Comments: Doppler showed a critical stenosis he has been referred as an outpatient at [facility] he is not currently having any neuro vascular symptoms (11) Jaundice Priority: Secondary Status: Acute Comments: His bilirubin was elevated he had a liver ultrasound that showed fatty liver nonspecific changes no mass he is scheduled for an outpatient follow-up hepatitis ABC testing were negative no current reason for the elevated bilirubin will refer to GI as improved since his admission (12) DVT prophylaxis Priority: Secondary Status: Acute (13) Afib Priority: Secondary Status: Resolved Comments: Maintenance rate controlled on metoprolol and amiodarone he is on anticoagulant related with Plavix and aspirin due to the fact that he had a GI bleed we will not start further anticoagulation at this time Qualifiers: Atrial fibrillation type: paroxysmal Qualified Code(s): I48.0 - Paroxysmal atrial fibrillation (14) UTI (urinary tract infection) Priority: Secondary Status: Acute Comments: He had this when he presented to our hospital his initial urine culture Levaquin was started to finish that as an outpatient Qualifiers: Urinary tract infection type: acute cystitis Hematuria presence: with hematuria Qualified Code(s): N30.01 - Acute cystitis with hematuria (15) Elevated liver function tests Priority: Secondary Status: Acute Comments: Right upper quadrant ultrasound showed fatty liver no other acute lesions hepatitis A, B, and C were negative we will refer him to outpatient GI referral (16) Leukocytosis Priority: Secondary Status: Acute Comments: The day prior to discharge her to thoracic surgery repeat CBC showed white count of 18,000 he had a chest x-ray did not show any acute changes he had a repeat urine that did not have anything but urobilinogen and it he remained on the Levaquin we did decrease his prednisone dose. Repeat CBC this morning was lower will repeat that next week Qualifiers: Leukocytosis type: unspecified Qualified Code(s): D72.829 - Elevated white blood cell count, unspecified Hospital course: Mr. Shine is a 67 year old male Who presented to [facility] after he was deconditioned after he had a prolonged hospital course with CABG. He had a GI bleed prior to having his CABG he had duodenal ulcers. His hemoglobin remained stable he had a CABG at the outside hospital. He developed thrombocytopenia afterwards bursal hematuria college and had a workup for that that did not show any clinical reason he did have elevated LFTs with an elevated bilirubin he had a right upper quadrant ultrasound here that did not show anything but fatty liver he is scheduled to follow-up as an outpatient with GI. He had a A. fib at the office hospital he is rate controlled here metoprolol amiodarone he is not anticoagulated beyond Plavix aspirin due to his recent GI bleed. He had hypotension at the outside hospital that has resolved since he has been here's blood pressures remained in the normal range he had a carotid bruit on admission he had a carotid ultrasound that showed a critical stenosis he has an out patient appointment to follow-up with vascular. He progressed well from a physical therapy standpoint he was up ambulating on his own he was felt safe to be discharged to his home environment he declined home health he declined home physical therapy. His sister lives next door and the duplex is going to be closely available to him. He was instructed not to drive until cleared by cardiothoracic surgery he is to follow-up in the office next week he was discharged home in stable condition. Discharge discussed with: patient - Time Spent with Patient Total time spent providing and/or coordinating discharge services: Less than 30 minutes - Discharge Medications Prescriptions: Amiodarone [Cordarone] 200 mg PO DAILY #30 tablet Atorvastatin Calcium [Lipitor] 20 mg PO DAILY #30 tablet Clopidogrel [Plavix] 75 mg PO DAILY 30 Days #30 tablet Furosemide [Lasix] 40 mg PO DAILY #30 tablet levoFLOXacin [Levaquin] 500 mg PO DAILY #4 tablet Metoprolol [Lopressor] 25 mg PO BID #60 tablet Omeprazole [PriLOSEC] 20 mg PO BIDAC #60 capsule. predniSONE [PredniSONE] 20 mg PO DAILY #9 tablet Home Medications: Acetaminophen [Tylenol] 1,000 mg PO Q8HR PRN 02/16/18 [History] Aspirin [Ecotrin] 325 mg PO DAILY 02/16/18 [History] Sennosides/Docusate Sodium [Colace 2-in-1 Tablet] 2 each PO DAILY 02/16/18 [ History] Amiodarone [Cordarone] 200 mg PO DAILY #30 tablet 02/21/18 [Rx] Atorvastatin Calcium [Lipitor] 20 mg PO DAILY #30 tablet 02/21/18 [Rx] Clopidogrel [Plavix] 75 mg PO DAILY 30 Days #30 tablet 02/21/18 [Rx] Furosemide [Lasix] 40 mg PO DAILY #30 tablet 02/21/18 [Rx] Metoprolol [Lopressor] 25 mg PO BID #60 tablet 02/21/18 [Rx] Omeprazole [PriLOSEC] 20 mg PO BIDAC #60 capsule. 02/21/18 [Rx] levoFLOXacin [Levaquin] 500 mg PO DAILY #4 tablet 02/21/18 [Rx] predniSONE [PredniSONE] 20 mg PO DAILY #9 tablet 02/21/18 [Rx] Allergies/Adverse Reactions: 3 Allergy/AdvReac Type Severity Reaction Status Date / Time No Known Allergies Allergy Verified 02/16/18 17:12 Date of admission: 02/16/18 16:03 Primary care physician: Bri Ramos CNP Consults: 02/16/18 17:21 Consult to Occupational Therapy [CONS] Routine Comment: s/p CABG Reason for Consult: s/p CABG Does patient have active BEDREST order?: No Is patient medically & hemodynamically stable?: Yes Consult to Physical Therapy [CONS] Routine Comment: s/p CABG Reason for Consult: s/p CABG Does patient have active BEDREST order?: No Is patient medically & hemodynamically stable?: Yes Consult to Recreational Therapy [CONS] Routine Comment: Consult to [facility] Coordinator [CONS] Routine Reason for SW Consult: discharge planning 02/16/18 17:32 Consult to Physical Medicine/Rehab [CONS] Routine Reason for Consult: s/p CABG Call Completed: No - Constitutional Vitals: Temp Pulse Resp BP Pulse Ox 97.7 F 84 16 119/68 95 02/21/18 07:17 02/21/18 07:17 02/21/18 07:17 02/21/18 07:17 02/21/18 07:17 General appearance: Present: A&O X 3, no acute distress (less jaundice), answers questions appropriately - Head Head exam: Present: atraumatic - Neck Neck exam general surgery: Present: supple, trachea midline - Expanded Neck Exam Neck exam: Present: carotid bruit (Left) - Respiratory Respiratory exam: Present: CTAB - Cardiovascular Cardiovascular exam: Present: +S1, +S2. Absent: systolic murmur - GI/Abdominal GI/Abdominal exam: Present: normal bowel sounds, soft, no peritoneal signs. Absent: distended, guarding, mass, tenderness - Extremities Exam Extremities exam: Absent: mottling, pedal edema - Incison Incision: Present: clean and dry, intact. Absent: erythema (Sternal both chest tubes right upper and right lower extremity incisions are all healing well) - Patient Status Disposition: Home, Self-Care Condition: Good Functional capacity at discharge: uses cane/walker Overall status at discharge: patient is progressing back to baseline - Discharge Instructions Instructions: Atrial Fibrillation (DC), Urinary Tract Infection in Men (DC), Acute Wound Care (DC), Chronic Hypertension (DC), Sternal Precautions, Unload Associate (GEN) Follow Up With: Dr Bailey [Other] - 03/08/18 9:45 am Tevin Clayton MD [Partnered Physician] - 03/14/18 4:20 pm (follow up appoint with gastro) Dennis Verduzco MD [Partnered Physician] - 02/27/18 11:30 am (At [place] location, arrive 15min early) Bri Ramos, PRINCESS [Primary Care Provider] - Chela Magdaleno MD [Partnered Physician] - 03/03/18 11:00 am Additional Instructions: sternal precautions, use bear to support chest - Diet and Activity Diet: low fat, low cholesterol, low salt diet - VTE Documentation of Mechanical Device: Graduated compression elastic hosiery
[2018-02-22 02:28] LABS: Hepatitis A Antibody IgM Nonreactive (Nonreactive); Hepatitis B Core IgM Nonreactive (Nonreactive); Hepatitis C Virus Antibody Nonreactive (Nonreactive)
[2018-02-22 05:30] LABS: Basophils % 0.1 %; Eosinophils % 0.2 %; Hematocrit 41.1 % (37.5-50.1); Hemoglobin 13.4 g/dL (12.9-16.9); Immature Granulocytes % 0.6 % (0-4); Lymphocytes # 4.3 K/mcL (0.6-4.6); Mean Corpuscular HGB Conc 32.6 g/dL (31.6-35.5); Mean Corpuscular Hemoglobin 32.7 pg (28.0-33.3); Mean Corpuscular Volume 100.2 fL (83.0-100.0); Mean Platelet Volume 11.7 fL (9.4-12.4); Monocytes # 1.6 K/mcL (0.0-1.3); Monocytes % 8.6 %; Platelet Count 405 K/mcL (140-400); Segmented Neutrophils % 66.5 %
[2018-02-22 05:49] LABS: Alanine Aminotransferase 159 Units/L (7-52); Albumin 3.7 g/dL (3.5-5.7); Albumin/Globulin Ratio 1.1 (1.1-2.2); Alkaline Phosphatase 204 Units/L (34-104); Aspartate Amino Transferase 81 Units/L (13-39); BUN/Creatinine Ratio 24 (6-26); Bilirubin,Direct 1.7 mg/dL (0.0-0.2); Bilirubin,Indirect 1.7 mg/dL (0.0-1.2); Bilirubin,Total 3.4 mg/dL (0.3-1.0); Blood Urea Nitrogen 31 mg/dL (8-23); Calcium 9.4 mg/dL (8.6-10.3); Carbon Dioxide 25 mEq/L (23-29); Chloride 98 mEq/L (98-107); Globulin 3.3 g/dL (2.4-3.5); Glucose 124 mg/dL (70-105); Osmolality,Calculated 288 (280-300); Potassium 4.1 mEq/L (3.5-5.1); Sodium 135 mEq/L (136-145); eGFR For African Americans > 60 (> 60); eGFR For Non-African Americans 55 (> 60)
[2018-02-22] MEDS: Famotidine 20 MG TABLET PO SCH ×2 (05:58→16:20)
[2018-02-22] MEDS: predniSONE 20 MG TABLET PO SCH (08:13)
[2018-02-22] MEDS: Aspirin Enteric Coated 325 MG Tablet PO SCH (08:13)
[2018-02-22] MEDS: *HR* Amiodarone 200 MG TABLET PO SCH (08:14)
[2018-02-22] MEDS: levoFLOXacin 500 MG TABLET PO SCH (08:14)
[2018-02-22] MEDS: Furosemide 40 MG TABLET PO SCH (08:16)
[2018-02-22] MEDS: Sennosides/Docusate Sodium TABLET PO SCH (09:34)
[2018-02-22 11:05] LABS: Bilirubin,Urine Negative (Negative); Blood,Urine Negative (Negative); Clarity,Urine Clear (Clear); Color,Urine Yellow (Yellow); Glucose,Urine (UA) Normal (Normal); Ketones,Urine Negative (Negative); Leukocyte Esterase,Urine Negative (Negative); Nitrite,Urine Negative (Negative); Protein,Urine Negative (Neg-Trace); Urobilinogen,Urine >=8.0 mg/dL (Normal)
--- NOTE | 2018-02-22 13:25 | Internal Med Progress Note ---
Date of Encounter: 02/22/18 Time of Encounter: 14:03 - Assessment and plan (1) Physical deconditioning Current Visit: Yes Status: Acute Assessment and plan: here for pt/ot progressing well was set for d/c but now wbbc elevated holding d/ c (2) S/P CABG x 2 Current Visit: Yes Status: Acute Assessment and plan: stable no current cardiac symptoms (3) CAD (coronary artery disease) Current Visit: Yes Status: Acute Assessment and plan: no cp, no cardiac symptoms Qualifiers: Coronary Disease-Associated Artery/Lesion type: [place] artery [place] vs. transplanted heart: [place] heart Associated angina: without angina Qualified Code(s): I25.10 - Atherosclerotic heart disease of [place] coronary artery without angina pectoris (4) HTN (hypertension) Current Visit: Yes Status: Acute Assessment and plan: stable on current medication, not getting too low Qualifiers: Hypertension type: essential hypertension Qualified Code(s): I10 - Essential (primary) hypertension (5) Mixed hyperlipidemia Current Visit: Yes Status: Acute Assessment and plan: on statin (6) Hyperglycemia Current Visit: Yes Status: Resolved Assessment and plan: off ssi now, sugars in range (7) Thrombocytopenia Current Visit: Yes Status: Acute Assessment and plan: stable will continue to follow possibly due to liver abnormality (8) GI bleed Current Visit: Yes Status: Acute Assessment and plan: hemoglobin stable on ppi Qualifiers: GI bleed type/associated pathology: duodenal ulcer Qualified Code(s): K26.4 - Chronic or unspecified duodenal ulcer with hemorrhage (9) Duodenal ulcer Current Visit: Yes Status: Acute Assessment and plan: on ppi hb stable (10) Left carotid bruit Current Visit: Yes Status: Acute Assessment and plan: has appt with karol (11) Jaundice Current Visit: Yes Status: Acute Assessment and plan: had liver us has out pt gi referral (12) DVT prophylaxis Current Visit: Yes Status: Acute Assessment and plan: on marion and plavix and ambulation given hx of gi bleed (13) Afib Current Visit: Yes Status: Resolved Assessment and plan: on plavix, asa and betablocker and amiodarone. will cont until follow up with cardio, no candidate for other anticoagulation due to recent gi bleed, has f/u with cardio after d/c Qualifiers: Atrial fibrillation type: paroxysmal Qualified Code(s): I48.0 - Paroxysmal atrial fibrillation (14) UTI (urinary tract infection) Current Visit: Yes Status: Acute Assessment and plan: added levaquin per sensitivities will send home on levaquin, but wbc increased today Qualifiers: Urinary tract infection type: acute cystitis Hematuria presence: with hematuria Qualified Code(s): N30.01 - Acute cystitis with hematuria (15) Leukocytosis Current Visit: Yes Status: Acute Assessment and plan: will check urine, cxr lower steroids and repeat in am. unfortunately his will not be able to be d/c today. no acute other signs of infection Qualifiers: Leukocytosis type: unspecified Qualified Code(s): D72.829 - Elevated white blood cell count, unspecified - Subjective Interval history: feeling good today. only pain with cough. no sob, no n/v, no dizzy, no urine freq no dysuria. bowels ok. progressing with therapy was set for d/c 02/22. but now with wbc 18. will need to watch and get ua, cxr, no current signs of infection. progressing well with pt. feeling good today disappointed about not going home - Constitutional Vitals: Temp Pulse Resp BP Pulse Ox 98.8 F 89 16 132/70 98 02/22/18 07:00 02/22/18 07:00 02/22/18 07:00 02/22/18 07:00 02/22/18 07:00 General appearance: Present: A&O X 3, no acute distress (less jaundice), answers questions appropriately - Head Head exam: Present: atraumatic, normocephalic - ENT ENT exam: Present: mucous membranes moist, normal oropharynx - Neck Neck exam general surgery: Present: supple, trachea midline. Absent: lymphadenopathy - Respiratory Respiratory exam: Present: CTAB - Cardiovascular Cardiovascular exam: Present: RRR, +S1, +S2. Absent: systolic murmur - GI/Abdominal GI/Abdominal exam: Present: normal bowel sounds, soft, no peritoneal signs. Absent: distended, guarding, tenderness - Extremities Exam Extremities exam: Present: warm. Absent: mottling, pedal edema - Incison Incision: Present: clean and dry, intact. Absent: erythema (sutures remved from both chest tube sites. right one open prior left one intact) - Skin Skin exam: Present: dry, warm. Absent: rash Internal Medicine: Result - Labs CBC & Chem 7: 02/22/18 05:25 02/22/18 05:25 Labs: Short CBC 02/22/18 Range/Units 05:25 WBC 18.0 H (4.3-11.1) K/mcL Hgb 13.4 D (12.9-16.9) g/dL Hct 41.1 (37.5-50.1) % Plt Count 405 H (140-400) K/mcL Neutrophils # 12.0 H (1.6-8.9) K/mcL BMP 02/22/18 05:25 Sodium 135 L Potassium 4.1 Chloride 98 Carbon Dioxide 25 BUN 31 H Creatinine 1.31 H Glucose 124 H Calcium 9.4 Liver Function 02/22/18 Range/Units 05:25 Total Bilirubin 3.4 H (0.3-1.0) mg/dL Direct Bilirubin 1.7 H (0.0-0.2) mg/dL AST 81 H (13-39) Units/L ALT 159 H (7-52) Units/L Alkaline Phosphatase 204 H (34-104) Units/L Albumin 3.7 (3.5-5.7) g/dL Urine 02/22/18 Range/Units 10:44 Urine Color Yellow (Yellow) Urine Clarity Clear (Clear) Urine pH 6.0 (5.0-8.0) pH Units Ur Specific [place] 1.020 (1.010-1.025) Urine Protein Negative (Neg-Trace) mg/dL Urine Glucose (UA) Normal (Normal) mg/dL - Impressions Impressions Chest X-Ray 02/22/18 09:12 IMPRESSION: Possible trace bilateral pleural effusions, unchanged. No evidence of pneumonia D/ / Syd Murphy MD / Syd Murphy MD Interpreting Provider: Syd Murphy MD - VTE Documentation of Mechanical Device: Graduated compression elastic hosiery Consult Discharge Plan - Plan Instructions: Atrial Fibrillation (DC), Urinary Tract Infection in Men (DC), Acute Wound Care (DC), Chronic Hypertension (DC), Sternal Precautions, Transcribing Operator Head (GEN) Referrals: Dr Bailey [Other] - 03/08/18 9:45 am Tevin Clayton MD [Partnered Physician] - 03/14/18 4:20 pm (follow up appoint with gastro) Chela Magdaleno MD [Partnered Physician] - 03/03/18 11:00 am Bri Ramos CNP [Primary Care Provider] - Dennis Verduzco MD [Partnered Physician] - 02/27/18 11:30 am (At [place] location, arrive 15min early) Prescriptions: Amiodarone [Cordarone] 200 mg PO DAILY #30 tablet Atorvastatin Calcium [Lipitor] 20 mg PO DAILY #30 tablet Clopidogrel [Plavix] 75 mg PO DAILY 30 Days #30 tablet Furosemide [Lasix] 40 mg PO DAILY #30 tablet levoFLOXacin [Levaquin] 500 mg PO DAILY #4 tablet Metoprolol [Lopressor] 25 mg PO BID #60 tablet Omeprazole [PriLOSEC] 20 mg PO BIDAC #60 capsule. predniSONE [PredniSONE] 20 mg PO DAILY #9 tablet
[2018-02-23] MEDS: Famotidine 20 MG TABLET PO SCH (06:35)
[2018-02-23 07:18] LABS: Basophils % 0.1 %; Eosinophils % 0.2 %; Hemoglobin 12.6 g/dL (12.9-16.9); Immature Granulocytes % 0.9 % (0-4); Lymphocytes # 3.3 K/mcL (0.6-4.6); Lymphocytes % 21.9 %; Mean Corpuscular HGB Conc 33.2 g/dL (31.6-35.5); Mean Corpuscular Hemoglobin 33.1 pg (28.0-33.3); Mean Corpuscular Volume 99.7 fL (83.0-100.0); Mean Platelet Volume 11.9 fL (9.4-12.4); Monocytes # 1.2 K/mcL (0.0-1.3); Monocytes % 7.8 %; Neutrophils # 10.5 K/mcL (1.6-8.9); Platelet Count 327 K/mcL (140-400); Red Blood Count 3.81 M/mcL (4.19-5.50); Red Cell Distribution Width 18.8 % (11.5-14.5); Segmented Neutrophils % 69.1 %
[2018-02-23 07:30] LABS: Alanine Aminotransferase 128 Units/L (7-52); Albumin 3.1 g/dL (3.5-5.7); Albumin/Globulin Ratio 1.1 (1.1-2.2); Alkaline Phosphatase 163 Units/L (34-104); Aspartate Amino Transferase 63 Units/L (13-39); BUN/Creatinine Ratio 25 (6-26); Bilirubin,Direct 1.3 mg/dL (0.0-0.2); Bilirubin,Indirect 1.1 mg/dL (0.0-1.2); Bilirubin,Total 2.4 mg/dL (0.3-1.0); Blood Urea Nitrogen 31 mg/dL (8-23); Calcium 8.7 mg/dL (8.6-10.3); Carbon Dioxide 31 mEq/L (23-29); Chloride 100 mEq/L (98-107); Globulin 2.8 g/dL (2.4-3.5); Glucose 91 mg/dL (70-105); Osmolality,Calculated 290 (280-300); Potassium 3.4 mEq/L (3.5-5.1); Sodium 137 mEq/L (136-145); Total Protein 5.9 g/dL (6.4-8.9); eGFR For African Americans > 60 (> 60); eGFR For Non-African Americans 59 (> 60)
[2018-02-23 08:28] LABS: ANA IgG by ELISA NONE DETECTED (None Detected)
[2018-02-23] MEDS: Furosemide 40 MG TABLET PO SCH (08:48)
[2018-02-23] MEDS: *HR* Amiodarone 200 MG TABLET PO SCH (08:48)
[2018-02-23] MEDS: Sennosides/Docusate Sodium TABLET PO SCH (08:48)
[2018-02-23] MEDS: Aspirin Enteric Coated 325 MG Tablet PO SCH (08:48)
[2018-02-23] MEDS: levoFLOXacin 500 MG TABLET PO SCH (08:49)
[2018-02-23] MEDS ORDERED: predniSONE 20 MG TABLET PO SCH (09:00)
[2018-02-23 09:05] VITALS: BP 116/73
== END 2018-02-23 09:40 | disposition home or self-care (01) | DRG 945 ==
LOC: INPGRE 16:03
PROVIDERS: ADMIT Family Medicine; ATTEND Family Medicine

== ENCOUNTER 2021-11-05 14:55 | Observation (INO) ==
[2021-11-05] MEDS ORDERED: 0.9 % Sodium Chloride 1,000 ML IV ONE (15:36)
[2021-11-05 16:24] LABS: Basophils % 0.2 %; Eosinophils # 0.2 K/mcL (0.0-0.6); Eosinophils % 1.9 %; Hemoglobin 12.4 g/dL (12.9-16.9); Immature Granulocytes % 0.4 % (0-4); Lymphocytes # 2.3 K/mcL (0.6-4.6); Lymphocytes % 21.9 %; Mean Corpuscular HGB Conc 34.4 g/dL (31.6-35.5); Mean Corpuscular Hemoglobin 31.6 pg (28.0-33.3); Mean Corpuscular Volume 91.8 fL (83.0-100.0); Mean Platelet Volume 11.3 fL (9.4-12.4); Monocytes # 0.7 K/mcL (0.0-1.3); Monocytes % 6.5 %; Neutrophils # 7.3 K/mcL (1.6-8.9); Platelet Count 299 K/mcL (140-400); Red Blood Count 3.92 M/mcL (4.19-5.50); Red Cell Distribution Width 13.7 % (11.5-14.5); Segmented Neutrophils % 69.1 %; White Blood Count 10.6 K/mcL (4.3-11.1)
[2021-11-05 16:35] LABS: Activated Partial Thrombo Time 35.6 Seconds (26.0-36.0)
[2021-11-05 16:38] LABS: Alanine Aminotransferase 9 Units/L (7-52); Albumin/Globulin Ratio 1.3 (1.1-2.2); Alkaline Phosphatase 93 Units/L (34-104); Aspartate Amino Transferase 16 Units/L (13-39); BUN/Creatinine Ratio 19 (6-26); Bilirubin,Total 1.2 mg/dL (0.3-1.0); Blood Urea Nitrogen 19 mg/dL (8-23); Calcium 9.6 mg/dL (8.6-10.3); Carbon Dioxide 26 mEq/L (23-29); Chloride 102 mEq/L (98-107); Glucose 101 mg/dL (70-105); Magnesium 1.8 mg/dL (1.6-2.6); Osmolality,Calculated 286 (280-300); Phosphorous 3.1 mg/dL (2.7-4.5); Sodium 137 mEq/L (136-145); eGFR For African Americans > 60 (> 60); eGFR For Non-African Americans > 60 (> 60)
[2021-11-05 16:46] LABS: Troponin I 0.04 ng/mL (< 0.04)
[2021-11-05 16:49] LABS: INR 1.3; Prothrombin Time 14.4 Seconds (9.4-12.1)
[2021-11-05] MEDS ORDERED: Isovue-370 500 ML BOTTLE IVP ONE (17:12)
[2021-11-05 18:18] LABS: Bilirubin,Urine Negative (Negative); Blood,Urine Negative (Negative); Clarity,Urine Clear (Clear); Color,Urine Yellow (Yellow); Glucose,Urine (UA) Normal (Normal); Ketones,Urine Negative (Negative); Leukocyte Esterase,Urine Negative (Negative); Nitrite,Urine Negative (Negative); PH,Urine 6.5 pH Units (5.0-8.0); Protein,Urine Negative (Neg-Trace); Specific Gravity,Urine 1.015 (1.010-1.025); Urobilinogen,Urine Normal (Normal)
[2021-11-05] MEDS ORDERED: Acetaminophen 325 MG TABLET PO PRN ×2 (22:03)
[2021-11-05] MEDS ORDERED: Naloxone 0.4 MG/ML INJ IVP PRN (22:03)
[2021-11-05] MEDS ORDERED: Azithromycin 500 MG in 0.9 % Sodium Chloride 250 ML IVPB ONE (22:03)
[2021-11-05] MEDS ORDERED: Azithromycin 500 MG in 0.9 % Sodium Chloride 250 ML IVPB SCH (23:00)
[2021-11-05] MEDS ORDERED: *HR* Enoxaparin 80 MG/0.8 ML SYRINGE SQ SCH (23:00)
[2021-11-06 05:07] LABS: Basophils % 0.2 %; Eosinophils # 0.2 K/mcL (0.0-0.6); Eosinophils % 2.2 %; Hematocrit 33.3 % (37.5-50.1); Hemoglobin 11.4 g/dL (12.9-16.9); Immature Granulocytes % 0.3 % (0-4); Lymphocytes # 1.9 K/mcL (0.6-4.6); Lymphocytes % 21.2 %; Mean Corpuscular HGB Conc 34.2 g/dL (31.6-35.5); Mean Corpuscular Hemoglobin 31.1 pg (28.0-33.3); Mean Corpuscular Volume 90.7 fL (83.0-100.0); Mean Platelet Volume 10.8 fL (9.4-12.4); Monocytes # 0.7 K/mcL (0.0-1.3); Monocytes % 7.5 %; Neutrophils # 6.2 K/mcL (1.6-8.9); Platelet Count 282 K/mcL (140-400); Red Blood Count 3.67 M/mcL (4.19-5.50); Red Cell Distribution Width 13.3 % (11.5-14.5); Segmented Neutrophils % 68.6 %; White Blood Count 9.1 K/mcL (4.3-11.1)
[2021-11-06] MEDS ORDERED: *HR* Enoxaparin 40 MG/0.4 ML SYRINGE SQ SCH (06:00)
[2021-11-06 06:59] VITALS: BP 153/85; PULSE 86; RESP 14; TEMP 98; O2SAT 97
[2021-11-06] MEDS ORDERED: *HR* Heparin 5,000 UNIT/ML VIAL IVP ONE ×2 (07:50→08:04)
[2021-11-06] MEDS ORDERED: *HR* Heparin 5,000 UNIT/ML VIAL IVP PRN ×4 (07:50→08:04)
[2021-11-06] MEDS ORDERED: Heparin 25,000UNIT/250ML 1/2NS 25,000 UNIT/250 ML IV.SOLN IVC SCH ×2 (08:00→08:15)
[2021-11-06] MEDS ORDERED: ENZALUTAMIDE 40 MG PO SCH (09:00)
[2021-11-06] MEDS ORDERED: Aspirin Enteric Coated 81 MG Tablet PO SCH (09:00)
[2021-11-06] MEDS ORDERED: hydrALAZINE 10 MG TABLET PO SCH (09:00)
[2021-11-06 09:08] LABS: Alanine Aminotransferase 8 Units/L (7-52); Albumin 3.4 g/dL (3.5-5.7); Albumin/Globulin Ratio 1.3 (1.1-2.2); Alkaline Phosphatase 81 Units/L (34-104); Aspartate Amino Transferase 15 Units/L (13-39); BUN/Creatinine Ratio 15 (6-26); Bilirubin,Total 1.1 mg/dL (0.3-1.0); Blood Urea Nitrogen 13 mg/dL (8-23); Calcium 8.9 mg/dL (8.6-10.3); Carbon Dioxide 26 mEq/L (23-29); Chloride 106 mEq/L (98-107); Globulin 2.7 g/dL (2.4-3.5); Glucose 97 mg/dL (70-105); Osmolality,Calculated 288 (280-300); Potassium 3.4 mEq/L (3.5-5.1); Sodium 139 mEq/L (136-145); Total Protein 6.1 g/dL (6.4-8.9); eGFR For African Americans > 60 (> 60); eGFR For Non-African Americans > 60 (> 60)
== END 2021-11-06 08:53 ==
LOC: INPGRE 14:55 → EMEROOGRE 14:55 → INPGRE 21:57
PROVIDERS: ADMIT Family Medicine; ATTEND Family Medicine

== ENCOUNTER 2021-11-10 14:16 | Inpatient (IN) ==
[2021-11-12] MEDS: *HR* Enoxaparin 40 MG/0.4 ML SYRINGE SQ SCH (05:05)
[2021-11-12 06:00] LABS: Basophils % 0.5 %; Eosinophils # 0.1 K/mcL (0.0-0.6); Eosinophils % 1.6 %; Immature Granulocytes % 0.6 % (0-4); Lymphocytes # 3.2 K/mcL (0.6-4.6); Lymphocytes % 36.7 %; Mean Corpuscular HGB Conc 33.3 g/dL (31.6-35.5); Mean Corpuscular Hemoglobin 30.5 pg (28.0-33.3); Mean Corpuscular Volume 91.5 fL (83.0-100.0); Mean Platelet Volume 11.1 fL (9.4-12.4); Monocytes # 0.6 K/mcL (0.0-1.3); Monocytes % 6.8 %; Neutrophils # 4.7 K/mcL (1.6-8.9); Platelet Count 404 K/mcL (140-400); Red Blood Count 4.26 M/mcL (4.19-5.50); Red Cell Distribution Width 12.9 % (11.5-14.5); Segmented Neutrophils % 53.8 %; White Blood Count 8.7 K/mcL (4.3-11.1)
[2021-11-12 06:23] LABS: Alanine Aminotransferase 12 Units/L (7-52); Albumin 3.7 g/dL (3.5-5.7); Albumin/Globulin Ratio 1.4 (1.1-2.2); Alkaline Phosphatase 102 Units/L (34-104); Aspartate Amino Transferase 16 Units/L (13-39); BUN/Creatinine Ratio 24 (6-26); Bilirubin,Total 0.9 mg/dL (0.3-1.0); Blood Urea Nitrogen 25 mg/dL (8-23); Calcium 9.7 mg/dL (8.6-10.3); Carbon Dioxide 25 mEq/L (23-29); Chloride 101 mEq/L (98-107); Globulin 2.7 g/dL (2.4-3.5); Glucose 102 mg/dL (70-105); Osmolality,Calculated 287 (280-300); Potassium 3.9 mEq/L (3.5-5.1); Sodium 136 mEq/L (136-145); Total Protein 6.4 g/dL (6.4-8.9); eGFR For African Americans > 60 (> 60); eGFR For Non-African Americans > 60 (> 60)
[2021-11-12] MEDS: Aspirin Enteric Coated 81 MG Tablet PO SCH (08:40)
[2021-11-12] MEDS: Acetaminophen 325 MG TABLET PO PRN ×2 (08:42→20:59)
[2021-11-13] MEDS: *HR* Enoxaparin 40 MG/0.4 ML SYRINGE SQ SCH (04:33)
[2021-11-13] MEDS: Aspirin Enteric Coated 81 MG Tablet PO SCH (08:27)
[2021-11-13] MEDS: Acetaminophen 325 MG TABLET PO PRN ×2 (08:42→22:10)
[2021-11-14] MEDS: *HR* Enoxaparin 40 MG/0.4 ML SYRINGE SQ SCH (06:00)
[2021-11-14] MEDS: Acetaminophen 325 MG TABLET PO PRN ×2 (06:03→21:30)
[2021-11-14] MEDS: Aspirin Enteric Coated 81 MG Tablet PO SCH (10:17)
[2021-11-15] MEDS: *HR* Enoxaparin 40 MG/0.4 ML SYRINGE SQ SCH (06:46)
[2021-11-15] MEDS: Aspirin Enteric Coated 81 MG Tablet PO SCH (08:18)
[2021-11-15] MEDS: Acetaminophen 325 MG TABLET PO PRN (20:31)
[2021-11-16] MEDS: *HR* Enoxaparin 40 MG/0.4 ML SYRINGE SQ SCH (06:09)
[2021-11-16] MEDS: Aspirin Enteric Coated 81 MG Tablet PO SCH (08:29)
[2021-11-16] MEDS ORDERED: Metoprolol 100 MG TABLET PO SCH (09:00)
[2021-11-16 10:19] LABS: Basophils % 0.4 %; Eosinophils # 0.1 K/mcL (0.0-0.6); Eosinophils % 1.4 %; Hematocrit 35.9 % (37.5-50.1); Hemoglobin 12.2 g/dL (12.9-16.9); Immature Granulocytes % 0.3 % (0-4); Lymphocytes # 2.2 K/mcL (0.6-4.6); Lymphocytes % 31.4 %; Mean Corpuscular Volume 91.1 fL (83.0-100.0); Mean Platelet Volume 10.8 fL (9.4-12.4); Monocytes # 0.4 K/mcL (0.0-1.3); Monocytes % 5.1 %; Neutrophils # 4.3 K/mcL (1.6-8.9); Platelet Count 336 K/mcL (140-400); Red Blood Count 3.94 M/mcL (4.19-5.50); Segmented Neutrophils % 61.4 %; White Blood Count 7.1 K/mcL (4.3-11.1)
[2021-11-16 10:31] LABS: BUN/Creatinine Ratio 20 (6-26); Blood Urea Nitrogen 20 mg/dL (8-23); Calcium 9.1 mg/dL (8.6-10.3); Carbon Dioxide 26 mEq/L (23-29); Chloride 104 mEq/L (98-107); Glucose 117 mg/dL (70-105); Osmolality,Calculated 290 (280-300); Potassium 3.6 mEq/L (3.5-5.1); Sodium 138 mEq/L (136-145); eGFR For African Americans > 60 (> 60); eGFR For Non-African Americans > 60 (> 60)
[2021-11-16] MEDS: Acetaminophen 325 MG TABLET PO PRN (20:44)
[2021-11-16] MEDS: Metoprolol 100 MG TABLET PO SCH (20:44)
[2021-11-17] MEDS: *HR* Enoxaparin 40 MG/0.4 ML SYRINGE SQ SCH (06:08)
[2021-11-17] MEDS: Metoprolol 100 MG TABLET PO SCH ×2 (08:17→19:31)
[2021-11-17] MEDS: Acetaminophen 325 MG TABLET PO PRN ×2 (08:17→19:32)
[2021-11-17] MEDS: Aspirin Enteric Coated 81 MG Tablet PO SCH (08:17)
[2021-11-18] MEDS: *HR* Enoxaparin 40 MG/0.4 ML SYRINGE SQ SCH (05:22)
[2021-11-18] MEDS: Acetaminophen 325 MG TABLET PO PRN ×2 (08:49→20:09)
[2021-11-18] MEDS: Aspirin Enteric Coated 81 MG Tablet PO SCH (08:49)
[2021-11-18] MEDS: Metoprolol 100 MG TABLET PO SCH ×2 (08:49→20:09)
[2021-11-19] MEDS: *HR* Enoxaparin 40 MG/0.4 ML SYRINGE SQ SCH (05:13)
[2021-11-19 06:40] VITALS: BP 147/84; PULSE 64; RESP 15; TEMP 98.1; O2SAT 98
[2021-11-19] MEDS: Metoprolol 100 MG TABLET PO SCH (07:30)
[2021-11-19] MEDS: Aspirin Enteric Coated 81 MG Tablet PO SCH (07:30)
== END 2021-11-19 11:58 | disposition home health service (06) | DRG 947 ==
LOC: INPGRE 11-11 17:14
PROVIDERS: ADMIT Family Medicine; ATTEND Family Medicine